=== PATIENT | female | born 1950 | race Caucasian/White ===

== ENCOUNTER 2016-11-10 06:47 | Day surgery (SDC) | payer OTHER ==
[~2016-11-10] VITALS: Ht 162.6 cm; Wt 65.5 kg
[2016-11-10 07:21] VITALS: BP 116/77
[2016-11-10] MEDS ORDERED: LOSA25TA5 PO (07:28)
[2016-11-10] MEDS ORDERED: LEVO75TA5 PO (07:28)
[2016-11-10] MEDS ORDERED: CYCL5TAB PO (07:28)
[2016-11-10 10:31] LABS: GLUCOSE, CSF 59 mg/dL (40-80)
[2016-11-18 09:07] LABS: ALBUMIN SERUM 4.1 g/dL (3.6-4.8); CSF IGG INDEX 0.5 (0.0-0.7); IGG/ALBUMIN RATIO CSF 0.09 (0.00-0.25)
== END 2016-11-10 12:05 ==
LOC: OUT 06:47
PROVIDERS: ATTEND Specialist
DX: I67.2 Cerebral atherosclerosis (principal); I10 Essential (primary) hypertension
CPT/HCPCS: 62270; 77002; 82040; 82042; 82784; 82945; 83873; 84157; 89051